=== PATIENT | male | born 1955 | race Caucasian/White ===

== ENCOUNTER 2018-12-03 20:13 | Emergency (ER) | payer BC ==
[2018-12-03 21:14] LABS: #Basophils 0.2 thou/uL (0.0-0.2); #Eosinphils 0.7 thou/uL (0.0-0.7); #Lymphocytes 4.3 thou/uL (1.20-3.40); #Monocytes 0.9 thou/uL (0.11-0.59); %Basophils 1.4 % (0.0-1.0); %Eosinophils 5.9 % (0.0-10.0); %Lymphocytes 35.3 % (21.0-51.0); %Monocytes 7.7 % (0.0-10.0); %Neutrophils 49.8 % (42.0-75.0); Hemoglobin 16.1 g/dL (14.0-18.0); Mean Corpuscular HGB CONC 33.9 g/dL (32.0-36.0); Mean Corpuscular Hemoglobin 28.8 pg (27.0-31.0); Mean Corpuscular Volume 85.1 fL (78.0-98.0); Mean Platelet Volume 8.5 fL (7.4-10.4); Platelet Count 221 thou/uL (130-400); Red Blood Cell (RBC) Count 5.58 mill/uL (4.70-6.10)
--- NOTE | 2018-12-03 21:19 | RAD ---
XR Ankle Rt 3 View STANDARD History: [Pain and swelling.] Comparison: None. Findings: Mild circumferential soft tissue swelling of the ankle. Dorsal spur of the talar neck. No acute fracture or malalignment. Impression: Soft tissue swelling. No acute fracture or malalignment.
[2018-12-03 21:29] LABS: ALT (SGPT) 26 U/L (8-55); AST (SGOT) 14 U/L (5-34); Albumin 3.6 g/dL (3.4-4.8); Alkaline Phosphatase 66 U/L (40-150); Anion Gap 12 mmol/L (10-20); BUN (Urea Nitrogen) 20 mg/dL (8.4-25.7); Bilirubin, Total 0.3 mg/dL (0.2-1.2); Calc. Creatinine Clearance 0 mL/min (70-130); Carbon Dioxide 22 mmol/L (23-31); Chloride 111 mmol/L (98-107); Estimated GFR-MDRD 87; Glucose 146 mg/dL (80-115); Potassium 4.1 mmol/L (3.5-5.1); Protein, Total 6.6 g/dL (5.8-8.1); Sodium 141 mmol/L (136-145)
--- NOTE | 2018-12-03 22:20 | ULT ---
US Venous Doppler Rt Unilat History: [Pain] Comparison: None. Findings: Real-time grayscale, color, and spectral analysis right lower extremity venous system was p erformed. The common femoral, femoral, proximal portions greater saphenous and deep femoral veins as well as the popliteal and posterior tibial veins were interrogated. Normal flow, augmentation, compression. Likely a popliteal cyst posterior medial right knee. Mild low er extremity edema. Impression: No deep venous thrombosis.
== END 2018-12-03 22:39 | disposition home or self-care (01) ==
LOC: SCSER 20:13
DX: M79.89 Other specified soft tissue disorders (principal); E03.9 Hypothyroidism, unspecified; J45.909 Unspecified asthma, uncomplicated; Z79.899 Other long term (current) drug therapy
CPT/HCPCS: 36415; 80053; 85025